=== PATIENT | male | born 1940 | race Caucasian/White ===

== ENCOUNTER 2019-05-22 10:03 | Emergency (ER) | payer OTHER ==
[~2019-05-22] VITALS: Ht 175.3 cm; Wt 81.2 kg
[~2019-05-22 10:03] MED LIST: AGG25C PO; AML5T PO; ATOR20TA PO; DICL50TA4 PO; FINA5TAB4 PO; FLUO-125 PO; LATA0.0015 EACHEYE; LEVO0.5S6 OP; TER5T PO
[2019-05-22] MEDS ORDERED: SODIUM CHLORIDE 0.9% 1,000 ML IV ONE (10:34)
[2019-05-22 11:25] LABS: Hematocrit 44.8 % (41.0-53.0); Hemoglobin 14.9 g/dL (13.5-17.5); Mean Corpuscular Hemoglobin 30.6 pg (28.0-32.0); Mean Corpuscular Hgb Conc. 33.2 g/dL (32.0-36.0); Mean Corpuscular Volume 92.1 fL (80.0-100.0); Platelet Count (auto) 177 10^3/uL (140-450); Red Blood Cells 4.86 10^6/uL (4.5-5.90); Red Cell Distribution Width 13.7 % (11.8-14.3); White Blood Cell 29.4 10^3/uL (4.4-10.8)
[2019-05-22 11:30] LABS: Band Neutrophils % (manual) 0; Basophils % (manual) 0 (0.0-2.0); Blast Cells 0; Eosinophils % (manual) 0 (0-7); INR 1.07 (0.9-1.15); Metamyelocytes % 0; Myelocytes % 0; Partial Thromboplastin Time 20.4 sec (23.64-32.05); Promyelocytes % 0; Reactive Lymphocytes 0
[2019-05-22 11:31] LABS: Albumin 3.3 g/dL (3.4-5.0); Anion Gap 3 (5-15); Blood Urea Nitrogen 23 mg/dL (7-18); Calcium 10.5 mg/dL (8.5-10.1); Carbon Dioxide 28 mmol/L (21-32); Chloride 114 mmol/L (98-107); Glucose 159 mg/dL (74-106); Potassium 4.3 mmol/L (3.5-5.1); Sodium 145 mmol/L (136-145)
[2019-05-22 11:36] LABS: Alanine Aminotransferase 12 U/L (16-61); Alkaline Phosphatase 107 U/L (45-117); Aspartate Aminotransferase 11 U/L (15-37); BUN/Creatinine Ratio 22.8; Bilirubin, Total 0.7 mg/dL (0.2-1.0); GFR African American 92 mL/min; GFR Non-African American 76 mL/min; Total Protein 6.9 g/dL (6.4-8.2)
[2019-05-22 12:07] LABS: Lymphocytes % (manual) 67 (10.0-50.0); Monocytes % (manual) 5 (0-12)
[2019-05-22] MEDS ORDERED: cefTRIAXone 1GM/50ML D5W 50 ML IV ONE (13:30)
[2019-05-22 14:23] VITALS: BP 158/77
[2019-05-22 14:27] LABS: Urine Bacteria MANY /hpf (None Seen); Urine Blood 3+ /uL (Negative); Urine Mucus MANY (None Seen); Urine WBC 29519 /hpf (0 - 3)
[2019-05-22 14:33] LABS: Urine Specific Gravity 1.018 (1.001-1.035)
== END 2019-05-22 15:30 | disposition short-term general hospital (02) ==
LOC: EDBD 10:03 → ER 10:03
DX: A41.9 Sepsis, unspecified organism (principal); N40.0 Benign prostatic hyperplasia without lower urinary tract symptoms; E44.0 Moderate protein-calorie malnutrition; I10 Essential (primary) hypertension; Z68.26 Body mass index [BMI] 26.0-26.9, adult; Z86.73 Personal history of transient ischemic attack (TIA), and cerebral infarction without residual deficits; Z87.442 Personal history of urinary calculi; Z79.899 Other long term (current) drug therapy
CPT/HCPCS: 36415; 71045; 74176; 80053; 81001; 83605; 84484; 85007; 85027; 85610; 85730; 87040; 87086; 87088; 87186; 93005; 96361; 96365; 99285; J0696

== ENCOUNTER 2019-05-23 19:28 | Emergency (ER) | payer OTHER ==
[~2019-05-23] VITALS: Ht 165.1 cm; Wt 81.2 kg
[2019-05-23] MEDS ORDERED: ACETAMINOPHEN 325 MG TAB PO ONE (20:00)
[2019-05-23 21:26] LABS: Hemoglobin 13.1 g/dL (13.5-17.5); Platelet Count (auto) 177 10^3/uL (140-450); Red Blood Cells 4.22 10^6/uL (4.5-5.90)
[2019-05-23 21:27] LABS: Hematocrit 38.9 % (41.0-53.0); Mean Corpuscular Hgb Conc. 33.6 g/dL (32.0-36.0); Mean Corpuscular Volume 92.2 fL (80.0-100.0); Red Cell Distribution Width 14.1 % (11.8-14.3)
[2019-05-23 21:39] LABS: White Blood Cell 30.1 10^3/uL (4.4-10.8)
[2019-05-23 21:40] LABS: Band Neutrophils % (manual) 0; Basophils % (manual) 0 (0.0-2.0); Blast Cells 0; Eosinophils % (manual) 0 (0-7); Metamyelocytes % 0; Myelocytes % 0; Promyelocytes % 0
[2019-05-23 21:43] LABS: Albumin 2.9 g/dL (3.4-5.0); Calcium 9.8 mg/dL (8.5-10.1); Potassium 3.5 mmol/L (3.5-5.1)
[2019-05-23 21:46] LABS: Bilirubin, Total 0.8 mg/dL (0.2-1.0); Total Protein 6.3 g/dL (6.4-8.2)
[2019-05-23 22:09] LABS: Lymphocytes % (manual) 55 (10.0-50.0); Monocytes % (manual) 5 (0-12); Reactive Lymphocytes 7
[2019-05-23 23:11] LABS: Urine Bacteria FEW /hpf (None Seen); Urine Blood 2+ /uL (Negative); Urine Mucus FEW (None Seen); Urine Specific Gravity 1.015 (1.001-1.035); Urine WBC 450 /hpf (0 - 3); Urine WBC Clumps PRESENT /hpf (None Seen)
[2019-05-23] MEDS ORDERED: VANCOMYCIN 1GM/250ML 250 ML IV ONE (23:30)
[2019-05-24] MEDS ORDERED: cefTRIAXone 1GM/50ML D5W 50 ML IV ONE (00:30)
[2019-05-24] MEDS ORDERED: SODIUM CHLORIDE 0.9% 1,000 ML IV ONE (01:00)
[2019-05-24 06:03] VITALS: BP 151/74
== END 2019-05-24 06:44 | disposition short-term general hospital (02) ==
LOC: ER 19:28
DX: N39.0 Urinary tract infection, site not specified (principal); A41.9 Sepsis, unspecified organism; E86.0 Dehydration; I10 Essential (primary) hypertension; Z86.73 Personal history of transient ischemic attack (TIA), and cerebral infarction without residual deficits; Z87.442 Personal history of urinary calculi; Z79.899 Other long term (current) drug therapy
CPT/HCPCS: 36415; 80053; 81001; 83605; 85007; 85027; 87040; 96365; 96367; 99285; J0696; J3370; J7030